=== PATIENT | female | born 1930 | race Caucasian/White ===

== ENCOUNTER 2017-02-13 10:30 | Emergency (ER) | payer MEDICARE ==
[~2017-02-13] VITALS: Ht 162.6 cm; Wt 57.3 kg
[2017-02-13 10:33] VITALS: BP 169/56; PULSE 68; RESP 20; O2SAT 95
--- NOTE | 2017-02-13 10:59 | ED.REPORT ---
HPI-Head Prob / Injury Date of Service Feb 13, 2017 ED Provider: iMke Brown MD Albertina is an 87-year-old female with a history of hypertension presenting to emergency department for evaluation following a fall. Patient reports tripping in the parking lot in the hospital on her way to visit her son who is admitted. She reports striking her head. She noted bleeding at the time but thought little of the injury. Charge nurse on the second floor noticed expanding hematoma, bleeding and suggested she be seen in emergency department at that time the patient complained of some lightheadedness. She denies headache, vomiting, nausea, seizure, use of blood thinners, loss of consciousness, amnesia to events, neck pain, numbness/weakness in her limbs. She denies at the fall was preceded by chest pain, shortness of breath, dizziness, sensation of presyncope. Nursing Notes Stated Complaint: FALL Chief Complaint: Head, Face, Neck Trauma Nursing Notes Reviewed: Yes Allergies: Coded Allergies: amlodipine (Verified Allergy, Severe, Rash, 02/13/17) lisinopril (Verified Adverse Reaction, Severe, cough, 02/13/17) lovastatin (Verified Adverse Reaction, Severe, muscle weakness, 02/13/17) simvastatin (Verified Adverse Reaction, Severe, muscle soreness, 02/13/17) General Time Seen by Provider: 10:46 Chief Complaint Blunt head trauma Past Medical History Past Medical History Reports: Hypertension Review of Systems Review of Systems Note: Negative unless stated otherwise in history of present illness Physical Exam General: Well appearing, well developed, well nourished, no acute distress. Head: Hematoma and 1 cm laceration on left forehead, minimal bleeding. No deformity. No mastoid tenderness. Eyes: No scleral icterus or injection. No discharge. PERRL. Vision grossly intact. Ears: Pinna and tragus nontender with manipulation. External auditory canal patent, atraumatic and without discharge. Tympanic membrane boss, shiny and translucent without fluid, bulging, retraction or perforation. Hearing grossly intact. Nose: Symmetrical, nares patent without discharge. No frontal or maxillary sinus tenderness. Mouth/pharynx: normal dentition, mucus membranes moist. Tonsils 2+ and symmetrical, uvula midline. Pharynx noninjected, no cobblestoning or discharge. Voice clear. Neck: No tenderness or lymphadenopathy. Trachea midline. Respiratory: Regular rate and rhythm. No respiratory distress. No increased work of breathing, speaks in complete sentences. Cardiovascular: Regular rate and rhythm, without murmur, gallop or rub. No pedal edema. Skin: Warm and dry. Neurological: Normal gait. Strength and sensation grossly intact in distal extremities. Moving all limbs normally. Grossly nonfocal. Cranial nerves: Vision grossly intact, PERRL, EOMI. Facial motion symmetrical, sensation to light touch over forehead, maxilla and mandible present and equal B /L. Voice clear and fluent, no drooling/pooling of saliva, uvula rises midline. Psychological: Alert and oriented. Speech appropriate, linear and logical. Behavior appropriate. Initial Vital Signs Vital Signs (First) Date Time Temp Pulse Resp B/P Pulse Ox O2 Delivery O2 Flow Rate FiO2 02/13/17 10:33 36.3 68 20 169/56 95 02/13/17 12:05 Room Air Interpretation & Diagnostics Lab Results Interpretation Test 02/13/17 11:04 Hold Urine Received (Received) Procedures Laceration Management Laceration Management: Left forehead laceration. Procedure Performed by: Allied health pract (SHIRLEY Bond) Consent / Setup / Site Prep: Consent from patient, Hand hygiene observed, Stand sterile technique Wound Length: 1 cm Local Anesthesia: Lidocaine w epi 1%, 2cc, 27g needle Wound Preparation: Shurclens, Normal saline Debridement: None Irrigation: Copious Foreign Body Explore / Removal: Explored for foreign body Repair Skin: Prolene (6-0) # Sutures - Skin: 1 Suture Technique: Mattress Post-Procedure / Complications: Antibiotic oint applied, Dressing applied, No complications, Condition improved, Tolerated procedure well, Patient stable Re-Eval/Medical Decision Med Decision/Clinical Course 87-year-old female with a history of hypertension presents emergency department for evaluation following a mechanical fall in which she struck her forehead. Complains of bleeding and swelling from her left forehead. Denies red flag symptoms. Physical examination reveals hematoma over her left eye with a 1 cm laceration. The base is well visualized there is no evidence of a foreign body. There is no deformity. Neurological examination is normal. Remainder of examination is benign, with mildly elevated blood pressure but otherwise normal vitals. CT of the head and neck are reassuring against intracranial bleeding, fracture. Laceration is closed per above note. Discussed wound care, suture removal in 5- 7 days with primary care. Patient has plans to follow up with primary care provider in roughly 1 week. Advised regarding emergent return precautions. Patient verbalizes understanding of and consent to the plan. Discharge & Departure Primary Impression: Fall from ground level Additional Impressions: Traumatic hematoma of head Encounter type: initial encounter Qualified Code: S00.93XA - Contusion of unspecified part of head, initial encounter Laceration of head Encounter type: initial encounter Location of open wound of head: unspecified part of head Foreign body presence: without foreign body Qualified Code: S01.91XA - Laceration without foreign body of unspecified part of head, initial encounter Elevated blood pressure reading Disposition: Home All VS Reviewed: Yes Condition: Stable Patient Instructions: Laceration (ED) Additional Instructions: Evaluation in the emergency department following a fall include interview, physical examination and CT scans which are all reassuring that she has not sustained a serious injury to your head or neck in this fall. You do have a small hematoma and a laceration on your forehead. We have cleaned, sutured and dressed the wound with antibiotic ointment and gauze. I see no indication for antibiotics at this time. We have updated your tetanus shot Please leave this dressing on and dry for the next 24 hours. After that you can remove the dressing, clean with soap and water and then reapply antibiotic ointment and gauze or Band-Aid. Please do not submerge the wound as in washing dishes, swimming or soaking in a tub until you have the sutures removed. The pain is best treated with 400 mg of ibuprofen (Advil, Motrin) every 6 hours , or 1000 mg of acetaminophen (Tylenol) every 6 hours. These drugs can be taken at the same time for more severe pain. Be vigilant for signs of infection. While a small amount of redness, tenderness and clear or pink drainage is normal, any increasing pain, redness, swelling or the appearance of pus suggests infection. More severe infection as suggested by symptoms such as fever, chills, feeling ill, racing heart. Please return to emergency Department if you notice signs of infection. Follow-up with your primary care provider or return to the emergency department in 5-7 days for suture removal. Return to emergency department if he notice any new or worsening symptoms such as increasing pain, numbness or weakness in the limb, sudden or severe headache , vomiting, confusion or other neurologic symptoms. Referrals: Natalio Das MD EDSupervising Provider for APC: Mike Brown MD Attending Statement Attending attestation: I saw this patient in conjunction with Román Bond PA-C. I conducted an independent focused history and physical examination. I agree with the workup, evaluation, treatment and disposition. Mike Brown MD copies to: Natalio Das MD, Beck O MD Feb 13, 2017 10:59 Román Bond PA-C Feb 13, 2017 12:39
--- NOTE | 2017-02-13 11:49 | DRSVH ---
PROCEDURE: CT BRAIN WITHOUT CONTRAST ([id number]) INDICATIONS: trauma TECHNIQUE: Noncontrast 4.5 mm thick angled axial sections acquired from the foramen magnum to the vertex, with c oronal reformats. COMPARISON: None. FINDINGS: Image quality: Excellent. CSF spaces: Basal cisterns are patent. No extra-axial fluid collections. The ventricles are symmet mulu in size and shape. Brain: No intracranial bleeds or masses. There is cerebral volume loss for age, with resultant vent ricular and sulcal prominence. There are periventricular and deep white matter chronic small vessel ischemic changes. There is intracranial internal carotid artery and vertebral artery atherosclerosis . Skull and face: Calvarium and visualized facial bones appear intact, without suspicious lesions. Sma ll left frontal scalp hematoma noted. Sinuses: Visualized sinuses and mastoids are clear. IMPRESSION: No acute intracranial disease process. Dictated by: Veronica Muniz MD, PhD on 02/13/2017 at 11:45 Approved by: Veronica Muniz MD, PhD on 02/13/2017 at 11:47
--- NOTE | 2017-02-13 11:58 | DRSVH ---
PROCEDURE: CT CERVICAL SPINE WITHOUT CONTRAST ([id number]) INDICATIONS: trauma TECHNIQUE: Noncontrast 3 mm thick sections acquired from the skull base to the T4 level. Sagittal and coronal r eformats were then constructed. For radiation dose reduction, the following was used: automated exp osure control, adjustment of mA and/or kV according to patient size. COMPARISON: None. FINDINGS: Image quality: Limited by patient motion. Bones: No fractures or dislocations. Visualized superior ribs are intact. Spine degenerative disc d isease and facet arthropathy are noted. Soft tissues: Prevertebral soft tissues are normal in thickness. No paravertebral hematomas. No ap ical pneumothoraces. Carotid calcifications are noted. IMPRESSION: No fracture. No acute osseous lesion. If symptoms and/or clinical suspicion for patholog y persists, evaluation with MRI may be helpful for further assessment. Dictated by: Veronica Muniz MD, PhD on 02/13/2017 at 11:51 Approved by: Veronica Muniz MD, PhD on 02/13/2017 at 11:57
[2017-02-13 12:05] VITALS: BP 172/59; PULSE 63; RESP 19; O2SAT 99
[2017-02-13] MEDS ORDERED: TdaP Vaccine 0.5 mL Inj IM ONE (12:40)
[2017-02-13 12:57] VITALS: BP 154/55; PULSE 57; RESP 20; O2SAT 98
== END 2017-02-13 12:58 | disposition home or self-care (01) ==
LOC: SED 10:30
DX: S01.81XA Laceration without foreign body of other part of head, initial encounter (principal); S00.83XA Contusion of other part of head, initial encounter; W01.10XA Fall on same level from slipping, tripping and stumbling with subsequent striking against unspecified object, initial encounter; Y93.89 Activity, other specified; Y92.481 Parking lot as the place of occurrence of the external cause; Y99.8 Other external cause status; I10 Essential (primary) hypertension; Z23 Encounter for immunization; Z88.8 Allergy status to other drugs, medicaments and biological substances